=== PATIENT | male | born 1965 | race Caucasian/White ===

== ENCOUNTER 2024-10-27 16:28 | Emergency (ER) | payer MEDICARE, SELFPAY ==
--- OUTSIDE RECORDS SUMMARY | 2022-07-22 03:47 | XMS_ITS | Continuity of Care Document ---
Author Organization [facility] Address [address] [place] [address] Phone Care Team Providers Care Remote Sensing Surveyor Name Role Phone Maverick FORD MD, Timoteo Hoanga ble Advance Directives Directive Yes / No Effective Date File Name No Information Encounters Encounter Description Practice Location Reason(s) For Visit Diagnoses Date Provider Providers Copied on Encounter [facility], [address], [place], [id number], [place] tel:[phone] [facility] No Information Maverick Dinero er. [address] [facility], [address], [place], [place], [id number] , [place]. tel:[phone] Family History Family Member Type Diagnosis Age At Onset No Information Payers Payer name Insurance type Covered republican ID Authoriza tion(s) No Information Social History Type Description Quantity Date Captured Comments Sex Male Smoking Status No Information Chief Complaint And Reason For Visit No Information Reason For Referral Reason For Referral No Information History Of Present Illness Encounter Date Complaint History Of Prese nt Illness No Information Functional Status Date Functional Assessmen t No Information Instructions Date Instruction Additional Infor mation No Information Assessments Type Assessment Date No Information Patient Care Teams Name Effective Dates (start - stop) Status Members No Information
--- OUTSIDE RECORDS SUMMARY | 2022-07-22 03:47 | XMS_ITS | Continuity of Care Document ---
Author Organization [facility] Address [address] [place] [address] Phone Care Team Providers Care Assistant Credit Manager Name Role Phone Maverick FORD MD, Timoteo Hoanga ble Advance Directives Directive Yes / No Effective Date File Name No Information Encounters Encounter Description Practice Location Reason(s) For Visit Diagnoses Date Provider Providers Copied on Encounter [facility], [address] [facility], [place], [id number], [place] tel:[phone] [facility] No Information Maverick Dinero er. [address] [facility], [address], [place], [place], [id number] , [place]. tel:[phone] Family History Family Member Type Diagnosis Age At Onset No Information Payers Payer name Insurance type Covered democrat ID Authoriza tion(s) No Information Social History [...]
--- OUTSIDE RECORDS SUMMARY | 2022-08-07 04:30 | XMS_ITS | Continuity of Care Document ---
Author Organization [facility] Address [address] [place] [address] Phone Care Team Providers Care Corporate Claims Examiner Name Role Phone Edinson Fleming MD Unavailable Unavailable Allergies, Adverse Reactions, Alerts Substance Reaction Status Criticality HYDROCODONE BITARTRATE Active No In formation acetaminophen Active No Information Medications Medication Instructions Dosage Effective Dates (start - stop) Status Comments tramadol 50 mg tablet - Acti ve ibuprofen 800 mg tablet TAKE 1 TABLET BY MOUTH EVERY 8 HOURS FOR 10 DAYS - Active oxycodone 5 mg tablet - Acti ve naproxen 500 mg tablet - Act carlos tizanidine 4 mg tablet - Act carlos gabapentin 100 mg capsule - Active methylprednisolone 4 mg tablets in a dose pack - Active azithromycin 250 mg tablet TAKE 2 TABLET S BY MOUTH FOR 1 DAY THEN TAKE 1 TABLET BY MOUTH DAILY FOR 4 DAYS - Active Procedures Procedure Date OFFICE/OUTPATIENT VISIT EST OFFICE/OUTPATIENT VISIT NEW Advance Directives Directive Yes / No Effective Date File Name No Information Encounters Encounter Description Practice Location Reason(s) For Visit Diagnoses Date Provider Providers Copied on Encounter OFFICE/OUTPA TIENT VISIT EST [facility], [address] [facility] [address], [place], [address], [place] tel:[phone] [facility] [address] [facility] hip (chief complaint) Pain from implanted hardware, initial encounterBulging lumbar discPain in right hip 3 Lonnie Neves. [address] [place], [place], [id number] . tel:[phone] OFFICE/OUTPA TIENT VISIT NEW [facility], [address] [facility], [place], [address], [place] tel:[phone] [facility] [address] [facility] hip (chief complaint) Pain from implanted hardware, initial encounterRight hip pain 3 Lonnie Edinson. [address] [place], [place], [address] . tel:[phone] [facility], [address] [address], [place], [address], [place] tel:[phone] [facility] No Information 3 Lonnie Piersonolas. [address] [place], [place], [address] . tel:[phone] Family History Family Member Type Diagnosis Age At Onset Problem Family history of Cancer, ov aroldo Problem Family history of Cancer, bl adder Payers Payer name Insurance type Covered constitution party ID Authoriza tion(s) Blue Preferred POS/PPO/HMO E2 OT [id number] Social History Type Description Quantity Date Captured Comments Alcohol Use Details Unknown Caffeine Use Details Unknown Tobacco Use Status No Information Smoking Status No Information Sex Male Chief Complaint And Reason For Visit From encounter dated '08/07/2022 09:30'. hip (chief complaint) Reason For Referral Reason For Referral No Information History Of Present Illness Encounter Date Complaint History Of Prese nt Illness lumbar spine hip Comments: Reason for visit: Painful right groin, total hip arthroplastyHe did bring in his bone scan results, as well as CT scan, sed rate and CRP. They are all normal. Eventually, I looked at an MRI of his lumbar spine and he has a slipped disc at L1-2, spondylolisthesis, as well as a large bulging disc. Comments: Selwyn Rajput, right hip and groin pain status post total hip arthroplasty in 2020. Patient is a 56 year old male who had a right ASHLEY in July 2020 by an outside physician. He continues to have pain. He has had pain since surgery, burning pain on the anterolateral aspect of his hip, pain with any motion of his hip especially his groin. He denies any fever or chills but he did have post op wound drainage that eventually resolved, but he does deny any purulence. He has start up pain, pain at rest for at least an hour when going to bed and it wakes him at night several times. He states his had an infectious markers drawn but he does not remember what they were, he also had a bone scan but did not bring it with him. hip Functional Status Date Functional Assessmen t No Information Instructions Date Instruction Additional Infor los I discussed the MRI with him fully. I believe this is likely the cause of his pain. I will set up a corticosteroid injection for him. Of note, he did have an iliopsoas injection which did not seem to help him very much. He will follow up if pain persists. Related to Pain in right hip I discussed this wit h him fully. I would like to evaluate Sed rate and CRP myself as well as a bone scan so I recommended he bring that next visit, as well as updated x-rays he took at his PCP office. It is difficult to say what is causing his pain at this time but I would like to rule out infection and loosening at this time as his x-rays appear normal. The medical record documentation of this Provider's service encounter was entered by Tess Mcfarlane, acting as Engineering Agent for Edinson Fleming M.D. Related to Right hip pain Assessments Type Assessment Date assessment Pain from implanted hardware, in itial encounter assessment Bulging lumbar disc assessment Pain in right hip Patient Care Teams Name Effective Dates (start - stop) Status Members No Information
--- OUTSIDE RECORDS SUMMARY | 2024-09-01 06:30 | XMS_ITS ---
Author Organization [facility] Address [address] [place] [address] [place] [address] Care Team Providers Care Data Solutions Architect Name Role Phone GUS FORD, CHRISSYHunter Primary Care Provider Unavailab Huber Alcala Unavailable [phone] REASON FOR VISIT Post Procedure Follow Up Call Encounters Encounter Location Date Provider Diagnosis [facility] [address] [place] [address] 09/01/2024 Huber Damon PLAN OF TREATMENT No Information
--- OUTSIDE RECORDS SUMMARY | 2024-09-08 04:00 | XMS_ITS ---
Author Organization [facility] Address [address] [facility] [place] [address] Care Team Providers Care Insurance Producer Name Role Phone GUS FORD, JIAN Primary Care Provider Jaun DensonivannaHuber campos Unavailable [phone] ALLERGIES Allergen (clinical drug ingredient) Drug/Non Drug Allergy documented on EMR Reaction Allergy Type Onset Date Status hydrocodone Hydrocodone itching Drug Allergy Act carlos REASON FOR VISIT Follow Up, Right > Left Low Back Pain MEDICATIONS Medication SIG (Take, Route, Fr equency, Duration) Notes Start Date End Date Status Aspirin 81 MG 1 tablet Orally Once a day for 30 day(s) Active Cetirizine HCl 10 MG 1 tablet Orally Onc e a day for 30 day(s) Active Flexeril 10 MG 1 tablet at bedtime as needed Orally Once a day for 30 day(s) Active Tylenol 325 MG 1 tablet as needed O rally every 6 hrs Active buPROPion HCl 75 MG 1 tablet Orally Twice a day Active SOCIAL HISTORY Tobacco Use: Social History Observation Description Date Details (start date - stop date) Former Smoker NA - NA Sex Assigned At : Social History Observation Description Sex Assigned At Unknown Tobacco Use/Smoking Question Answer Notes Are you a former smoker Alcohol Screen (Audit-C) Question Answer Notes Did you have a drink containing alcohol in the p ast year? 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 The patient is a former smoker. He denies alcohol or illicit drug abuse. VITAL SIGNS Blood pressure systolic 136 mm Hg 09/09/19 25 Blood pressure diastolic 90 mm Hg 025 Heart Rate 76 /min 09/08/2024 Respiratory Rate 18 /min 09/08/2024 Height 5 ft 8 in in 09/08/2024 Weight 261 lbs 09/08/2024 BMI 39.68 kg/m2 09/08/2024 Encounters Encounter Location Date Provider Diagnosis [facility] [address] [facility] [place] [address] 09/08/2024 Huber Damon Spondylosis without myelopathy or radiculopathy, lumbar region M47.816 ; Spondylosis without myelopathy or radiculopathy, lumbosacral region M47.817 ; Lumbar radiculopathy M54.16 and Radiculopathy, lumbosacral region M54.17 ASSESSMENTS Encounter Date Diagnosis Assessment Notes Treatment Notes Treatment Clinical Notes Section Notes 09/08/2024 Spondylosis without myelopathy or radiculopathy, lumbar region (ICD-10 - M47.816) Schedule a bilateral L2-4 radiofrequency ablation for a more durable treatment of the patient's facet-generated low back pain originating from the L3-4 and L4-5 facet joints. The risks of this procedure including pain, bleeding, infection, nerve damage, spinal cord injury, paralysis, total spinal anesthesia resulting in cardiopulmonary arrest/, respiratory distress requiring intubation, neuritis after radiofrequency ablation, hyperglycemia, insomnia, hair loss, muscle atrophy, skin depigmentation, weight gain, fluid retention, adrenal suppression, osteoporosis resulting in fractures, avascular necrosis of the hip, cataracts, bleeding gastric ulcer, worsening pain and failure to relieve pain were discussed and the patient is agreeable to proceeding at this time. 09/08/2024 Spondylosis without myelopathy or radiculopathy, lumbosacral region (ICD-10 - M47.817) 09/08/2024 Lumbar radiculopathy (ICD-10 - M54.16) 09/08/2024 Radiculopathy, lumbosacral region (ICD-10 - M54.17) 09/08/2024 Other The above-named patient was evaluated in conjunction with Dr. Damon. I have discussed and reviewed all of the pertinent history, physical examination findings and diagnostic imaging results with him. As a result of our discussion, Dr. Damon has determined the above assessment and directed the treatment plan. This note was dictated using voice recognition software and therefore inadvertent errors may have occurred. This note was dictated by BAILEY Del Castillo. Total Time Spent with Patient and Medical Decision Makin minutes PLAN OF TREATMENT Treatment Notes Assessment Notes Spondylosis without myelopat hy or radiculopathy, lumbar region Schedule a bilateral L2-4 radiofrequency ablation for a more durable treatment of the patient's facet-generated low back pain originating from the L3-4 and L4-5 facet joints. The risks of this procedure including pain, bleeding, infection, nerve damage, spinal cord injury, paralysis, total spinal anesthesia resulting in cardiopulmonary arrest/, respiratory distress requiring intubation, neuritis after radiofrequency ablation, hyperglycemia, insomnia, hair loss, muscle atrophy, skin depigmentation, weight gain, fluid retention, adrenal suppression, osteoporosis resulting in fractures, avascular necrosis of the hip, cataracts, bleeding gastric ulcer, worsening pain and failure to relieve pain were discussed and the patient is agreeable to proceeding at this time. Other The above-named patient was evaluated in conjunction with Dr. Damon. I have discussed and reviewed all of the pertinent history, physical examination findings and diagnostic imaging results with him. As a result of our discussion, Dr. Damon has determined the above assessment and directed the treatment plan. This note was dictated using voice recognition software and therefore inadvertent errors may have occurred. This note was dictated by BAILEY Del Castillo. Total Time Spent with Patient and Medical Decision Makin minutes Next Appt Details Follow Up: bilateral L2-4 RF A, Reason: Progress Notes * Examination Category Sub-Category Detail Notes Category Not es Examination/ Pre-Anesthesia Assessment General: The patient is alert and oriented X 3 in moderate distress secondary to pain HEENT: Normocephalic, atrau matic. PERRL. The oropharynx is clear Neck: There is full range of motion of the cervical spine Heart: Regular rate and rhy thm Chest: Clear to auscultatio n bilaterally Abdomen: Soft and benign with normal bowel sounds throughout Musculoskeletal and Extremities: There i s tenderness to palpation over the bilateral L2-3 through L5-S1 facet joints. Extension and lateral rotation of the lumbar spine reproduces the patient's typical axial low back pain. Deepak's, [place]'s and [place]'s are positive bilaterally. There is tenderness to palpation over the bilateral sacroiliac joints and greater trochanters. There is tenderness to palpation over the bilateral lumbar paraspinal muscles. There is full range of motion of the right hip Neurological: There is positive st raight leg raising on the right. There is 4 out of 5 strength of the right knee extensors, anterior tibialis and EHL. Otherwise, there are no focal strength deficits in the remainder of the right lower extremity and entire left lower extremity. The patient's gait is antalgic on the right Skin: Clean, dry and intac t Psychiatric: Mood and affect are normal History and Physical Notes * HPI (History of Present Illness) Category Sub-Category Detail Notes Category Not es Pain Management Radiographic Imaging An MRI lumbar spine done on 12/09/21 demonstrates a retrolisthesis of L1 on L2, L3 on L4 and L4 on L5. There is DDD and bilateral facet arthropathy at all levels of the lumbar spine. There are Modic type II endplate changes at L5 and S1. At T12-L1 there is a right paracentral disc protrusion. At L1-2 there is a central disc bulge with a right paracentral disc protrusion. At L2-3 there is central disc bulging without significant stenosis. At L3-4 there is a central and left foraminal disc protrusion and in combination with facet and ligament hypertrophy there is right greater than left foraminal stenosis. At L4-5 there is a central disc bulge with a central disc protrusion as well as a bilateral foraminal disc protrusion causing bilateral foraminal stenosis. At L5-S1 there is a right foraminal disc protrusion and in combination with facet hypertrophy this causes moderate right foraminal stenosis. An MRI lumbar spine done on 09/17/23 again demonstrates DDD and bilateral facet arthropathy throughout the lumbar spine. At L3-4 there is moderate right foraminal stenosis. At L4-5 there is moderate right and mild to moderate left foraminal stenosis. At L5-S1 there is moderate bilateral foraminal stenosis Assessment and Follow-up: Follow-up Plan docshlomo mathieu:: Yes MIPS Quality 2020: MIPS Documented:: Compliant
--- OUTSIDE RECORDS SUMMARY | 2024-09-13 09:30 | XMS_ITS ---
Author Organization [facility] Address [address] [place] [address] JAN Lujan [address] Care Team Providers Care Java Flex Developer Name Role Phone GUS FORD, JIAN Primary Care Provider Huber Gil Unavailable [phone] ALLERGIES Allergen (clinical drug ingredient) Drug/Non Drug Allergy documented on EMR Reaction Allergy Type Onset Date Status hydrocodone Hydrocodone itching Drug Allergy Act carlos REASON FOR VISIT Right > Left Low Back Pain MEDICATIONS Medication SIG (Take, Route, Fr equency, Duration) Notes Start Date End Date Status buPROPion HCl 75 MG 1 tablet Orally Twice a day Unknown Tylenol 325 MG 1 tablet as needed O rally every 6 hrs Unknown Flexeril 10 MG 1 tablet at bedtime as needed Orally Once a day for 30 day(s) Unknown Cetirizine HCl 10 MG 1 tablet Orally Onc e a day for 30 day(s) Unknown Aspirin 81 MG 1 tablet Orally Once a day for 30 day(s) Unknown VITAL SIGNS Blood pressure systolic 156 mm Hg 09/14/19 25 Blood pressure diastolic 102 mm Hg 025 Heart Rate 100 /min 09/13/2024 Respiratory Rate 16 /min 09/13/2024 Height 5 ft 8 in in 09/13/2024 Weight 261 lbs 09/13/2024 BMI 39.68 kg/m2 09/13/2024 Oximetry 97 % 09/13/2024 Post Op Vitals: BP 147/95, H R 86, RR 16, Spo2 97%Discharged to home with self, ambulatory without assistance at baseline, and in no acute distress. Encounters Encounter Location Date Provider Diagnosis [facility] [address] [place] [address] JAN MORTON [id number] 09/13/2024 Huber Damon Spondylosis without myelopathy or radiculopathy, lumbar region M47.816 and Spondylosis without myelopathy or radiculopathy, lumbosacral region M47.817 ASSESSMENTS Encounter Date Diagnosis Assessment Notes Treatment Notes Treatment Clinical Notes Section Notes 09/13/2024 Spondylosis without myelopathy or radiculopathy, lumbar region (ICD-10 - M47.816) 09/13/2024 Spondylosis without myelopathy or radiculopathy, lumbosacral region (ICD-10 - M47.817) 09/13/2024 Other The patient voiced understanding of the treatment plan and all questions were addressed. Obtain informed consent: Bilateral Lumbar 2-4 Radiofrequency Ablation under fluoroscopy. Monitor pulse, blood pressure and SaO2 before, after and as needed during procedure. Verify if the patient is currently taking blood thinner. Verify patients is not currently on antibiotics for infection. Patient may drive home. CARE PLAN: Knowledge deficit: Will verbalize understanding of the proposed procedure, including risk of electrical burn, complications and benefits of the procedure? Will the patient exhibit understanding of the discharge instructions? Safety: The potential for injury related to surgery was assessed; Fire risk score determined, test completed if applicable. Risk for injury related to wrong patient, site, procedure. TIME OUT for safety of patient and includes patient name, , procedure site, side, level, allergies, blood thinners, antibiotics, surgical counts, consents correct and signed etc. Risk for infection: Implements aseptic technique, protects from cross-contaminatio n, performs skin preparations. Pain/Discomfort: Patient verbalizes acceptable level of pain relief prior to discharge and the ability to engage in desired activity. I HAVE REVIEWED THE PATIENT'S MEDICATION LIST AND HAVE RECONCILED THE ABOVE MEDICATIONS. PATIENT GOALS AND SAFETY CONCERNS HAVE BEEN ADDRESSED. RN initials JE. PLAN OF TREATMENT Treatment Notes Assessment Notes Other The patient voiced understanding of the treatment plan and all questions were addressed. Obtain informed consent: Bilateral Lumbar 2-4 Radiofrequency Ablation under fluoroscopy. Monitor pulse, blood pressure and SaO2 before, after and as needed during procedure. Verify if the patient is currently taking blood thinner. Verify patients is not currently on antibiotics for infection. Patient may drive home. CARE PLAN: Knowledge deficit: Will verbalize understanding of the proposed procedure, including risk of electrical burn, complications and benefits of the procedure? Will the patient exhibit understanding of the discharge instructions? Safety: The potential for injury related to surgery was assessed; Fire risk score determined, test completed if applicable. Risk for injury related to wrong patient, site, procedure. TIME OUT for safety of patient and includes patient name, , procedure site, side, level, allergies, blood thinners, antibiotics, surgical counts, consents correct and signed etc. Risk for infection: Implements aseptic technique, protects from cross-contamination, performs skin preparations. Pain/Discomfort: Patient verbalizes acceptable level of pain relief prior to discharge and the ability to engage in desired activity. I HAVE REVIEWED THE PATIENT'S MEDICATION LIST AND HAVE RECONCILED THE ABOVE MEDICATIONS. PATIENT GOALS AND SAFETY CONCERNS HAVE BEEN ADDRESSED. RN initials CHEMO. Next Appt Details Follow Up: FU 10/04, Reason: Procedure Notes * Category Sub-Category Detail Notes Radiofrequency Ablation Procedure: L2-4 Med ial Branch Nerve Radiofrequency Ablation Location: Bilateral Anesthesia: Local without IV sed ation Operative Technique: After the risks, be nefits, alternative treatment options and potential complications related to the procedure were discussed, informed consent was obtained. The specific risks of this procedure including pain, bleeding, [...] is agreeable to proceeding at this time. The patient was placed in the prone position on the fluoroscopy table. Standard ASA monitors were applied. The back was prepped and draped in the usual sterile fashion with chlorhexidine 2%/IPA 70%. The bilateral L3 pedicles were identified with x-ray and the c-arm was obliqued 45 degrees to the selected side superimposing the L3 pedicle and L3 vertebral body. The skin and subcutaneous structures above it were anesthetized with 3 mL of 1% Preservative-Free lidocaine through a 25 g 1.5-inch needle. A 20-gauge coude 10 cm radiofrequency needle with a 10 mm active tip was inserted in a gun barrel fashion to the junction of the superior articular process and transverse process of L3 until periosteum was contacted. The bilateral L2 medial branch nerves were stimulated with negative motor stimulation at 2 Hz up to 3.0 V. A solution of 10 mg of Preservative-Free Dexamethasone (10 mg/mL), plus?5 mL of 1% Preservative-Free lidocaine was mixed. After negative aspiration for blood, air or CSF, 1 mL of this solution was injected. The bilateral L2 medial branch nerves were lesioned at 80 degrees Celsius for 90 seconds. The exact same procedure was repeated at the bilateral L3 medial branch nerves (at the junction of the superior articular process and transverse process of L4) and the bilateral L4 medial branch nerves (at the junction of the superior articular process and transverse process of L5) with no motor stimulation into the lower extremity at 2 Hz up to 3.0 V. The needles were then removed, the skin was cleaned and band-aids were placed over the puncture sites. The patient tolerated the procedure well, was able to ambulate without difficulty and was monitored for 20 minutes. The patient remained hemodynamically and neurologically stable. No complications were observed. Postoperative instructions were reviewed with the patient. The patient was discharged home in good condition with a cab driver. X-ray time:?51 secondsInstrumentation for this procedure came from load number(s): 174 [facility] First Critical Point Olesya ent identified by verbal and ID band. Surgical site marked. Assessement of allergies, airway and aspiration risk. Assessed if patient is on anticoagulant. Operataive Consent signed. Patient has discussed procedure with physician SHERYL CEDENO 09/13/2024 2:03:23 PM > Second Critical Point TIME OUT: Confirm patient identity, procedure and surgical incision site. Patient in proper position and safety straps placed appropriately. ASA score: _2_ Fire Risk Score:_2_ . Alcohol based prep solution had significant time for fumes to dissipate. Confirm surgical team otr truck driver and roles. Anticipated critical events. Essential imaging displayed as appropriate. Fluoroscopy precautions taken if applicable. Equipment and supplies in room. Verify patient is not if applicable SHERYL CEDENO 09/13/2024 2:03:23 PM > Third Critical Point [facility]: Complete count of surgical instruments and accessories. Identify delgado patient concerns for recovery and management of the patient. Patient remains free from injury related to surgery. The patient tolerated the procedure well and there were no complications. The patient was taken to the recovery area. The patient remained in stable condition with no apparent complications. Vital signs stable. Injection/procedure/surgical site clean, dry and intact. Post procedure discharge instructions were give to the patient and a follow up appointment was confirmed. The patient was discharged with information on how to reach the clinic at anytime for questions or concerns. Patient discharged ambulatory. Patient denies complaints or questions SHERYL CEDENO 09/13/2024 2:59:23 PM > Progress Notes * Examination Category Sub-Category Detail [...] patient's typical axial low back pain. Deepak's, [place]'s and [place]'s are positive bilaterally. There is [...] foraminal stenosis Assessment and Follow-up: Follow-up Plan documen mathieu:: Yes MIPS Quality 2020: MIPS Documented:: Compliant
--- OUTSIDE RECORDS SUMMARY | 2024-09-14 05:12 | XMS_ITS ---
Author Organization [facility] Address [address] [facility] [place] [address] Care Team Providers Care Cableman Name Role Phone GUS FORD, [facility] Primary Care Provider Unavailab Huber [place] Unavailable [phone] REASON FOR VISIT Post Op Call Encounters Encounter Location Date Provider Diagnosis [facility] [address] [facility] [place] [address] 09/14/2024 Huber Damon PLAN OF TREATMENT No Information
--- OUTSIDE RECORDS SUMMARY | 2024-10-04 08:15 | XMS_ITS ---
Author Organization [facility] Address [address] [facility] [place] [address] Care Team Providers Care Marketing Development Representative Name Role Phone GUS FORD, [facility] Primary Care Provider Unavailab Huber [place] Unavailable [phone] REASON FOR VISIT FOLLOW UP Encounters Encounter Location Date Provider Diagnosis [facility] [address] [facility] [place] [address] 10/04/2024 Huber Damon PLAN OF TREATMENT No Information
--- OUTSIDE RECORDS SUMMARY | 2024-10-27 16:30 | XMS_ITS | Continuity of Care Document ---
Author Name Paula Xiong Address [address] [facility] [address] [place] [address] Organization Unknown Address [address] [place] [address] [address] [place] [address] Medications No known medications Problems * Inguinal Hernia on: 2023-05-28
--- OUTSIDE RECORDS SUMMARY | 2024-10-27 16:30 | XMS_ITS | Encounter Summary ---
Author Organization [facility] Address [address] [facility] [place] [address] Phone Care Team Providers Care Public Address System Installer Name Role Phone James Strickland MD Primary Care Provider [phone] Geoffrey Sheehan MD Unavailable Fei Merritt MD Unavailable Reason for Referral * Radiology Services (Routine) - Closed Specialty Diagnoses / Procedures Referred By Contac t Referred To Contact Radiology Diagnoses Pre-op testing Procedures EKG 12 LEAD Kelton Mon MD [address] [place] [address] Phone: tel: fax: Referral ID Status Reason Start Date Expiration Date Visits Re quested Visits Authorized [id number] Closed 03/21/2020 1 1 [facility] Encounter Details Date Type Department Care Team (Late st Contact Info) Description 03/21/2020 [facility]cribe [facility] [address] [place] [id number] Kelton Mon MD [address] [place] [address] Pre-op testing (Primary Dx) Social History Tobacco Use Types Packs/Day Years Used Date Smoking Tobacco: Former Cigarettes 1 15 0 03/20/1980 - 1994 Smokeless Tobacco: Never Alcohol Use Standard Drinks/Week Comments Yes 0 (1 standard drink = 0.6 oz pur e alcohol) 3 beers a week/socially PHQ-2 Answer Date Recorded PHQ-2 Score 0 10/31/2018 Sexually Active Control Partners Comments Not Currently Female Sex and Gender Information Value Date Recorded Sex Assigned at Not on file Legal Sex Male 11:15 PM CDT Gender Identity Not on file Sexual Orientation Not on file COVID-19 Exposure Response Date Recorded In the last month, have you been in contact with someone who was confirmed or suspected to have Coronavirus / COVID-19? No / Unsure 03/23/2020 7:21 AM EMBR[facility]ER [facility] documented as of this encounter Plan of Treatment Not on file documented as of this encounter Results * EKG 12 LEAD (03/23/2020 7:55 AM [facility]BR[facility] HAND) Ventricular Rate BPM EXTERNAL EKG Atrial Rate BPM EXTERNAL EKG P-R Interval 156 ms EXTERNAL EKG QRS Duration 110 ms EXTERNAL EKG Q-T Duration 386 ms EXTERNAL EKG QTC CALCULATION 405 ms EXTERNAL EKG P [place] 34 degrees EXTERNAL EKG R [place] 19 degrees EXTERNAL EKG T [place] 23 degrees EXTERNAL EKG 03/23/2020 7:55 AM EMBR[facility]ER HAND Impressions EXTERNAL EKG - 03/23/2020 10:52 AM EMBR[facility] Sinus rhythm iRBBB Comparison Summary: No serial comparison made Summary: Normal ECG Confirmed by Lee Alejandro [id number] on 03/23/2020 10:52:49 AM Narrative Procedure Note Fadumo Howard MD - 03/23/2020 IMPRESSION: Sinus rhythm iRBBB Comparison Summary: No serial comparison made Summary: Normal ECG Confirmed by Lee Alejandro [id number] on 03/23/2020 10:52:49 AM Kelton Mon MD IMG ECG ORDERABLES Final Resu lt EXTERNAL EKG * HEMOGLOBIN & HEMATOCRIT (H&H) (03/23/2020 7:43 AM EMBROIDERER HAND) HEMOGLOBIN (HGB) 14.4 13.0 - 16.5 g/dL 03/23/2020 9:13 AM EMBROID[facility]ER HAND [facility] HEMATOCRIT (HCT) 45.2 38.0 - 50.0 % 03/23/2020 9:13 AM [facility]BROID[facility]ER HAND [facility] Blood Venipuncture / Unknown 03/23/2020 7:43 AM EMBROIDERER HAND 03/23/2020 8:58 AM EMBROIDERER HAND us Kelton Mon MD HEMATOLOGY ORDERABLES Final R esult [facility] [address] [facility] [place] [address] documented in this encounter Visit Diagnoses Diagnosis Pre-op testing- Primary Preoperative examination, unspecified Pre-op testing Preoperative examination, unspecified documented in this encounter Additional Health Concerns Infection Onset Date Last Indicated Resolved Time COVID - 19 Confirmed 03/23/2020 03/23/2020 021 12:18 AM EMBROIDERER HAND Assessment Noted Time PHQ-9 Depression Total Score: 0 11/03/19 18 9:00 AM CDT documented as of this encounter Care Teams Public Address System Installer Relationship Specialty Start Date End Date James Strickland MD [address] [facility] [address] [place] [address] PCP - General Family Medicine 01/13/15 Geoffrey Sheehan MD [address] [facility] [address] [place] [address] Consulting Physician Colon and Rectal Surgery 03/04/22 Fei Merritt MD [address] [facility] [address] [place] [id number] Consulting Physician Urological Surgery 07/09/22 documented as of this encounter
--- OUTSIDE RECORDS SUMMARY | 2024-10-27 16:30 | XMS_ITS | Patient Health Record ---
Author Organization [facility] Address [address] [facility] [place] [address] Care Team Providers Care Patient Accounts Specialist Name Role Phone GUS FORD, JIAN Primary Care Provider Huber Gil Unavailable [phone] ALLERGIES Allergen (clinical drug ingredient) Drug/Non Drug Allergy documented on EMR Reaction Allergy Type Onset Date Status hydrocodone Hydrocodone itching Drug Allergy Act carlos REASON FOR REFERRAL No Information MEDICATIONS Medication SIG (Take, Route, Fr equency, [...] Once a day for 30 day(s) Unknown SOCIAL HISTORY Tobacco Use: Social History Observation [...] Section Notes: 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 The patient is a former smoker. He denies alcohol or illicit drug abuse. 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 The patient is a former smoker. He denies alcohol or illicit drug abuse. 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 The patient is a former smoker. He denies alcohol or illicit drug abuse. 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 The patient is a former smoker. He denies alcohol or illicit drug abuse. 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 The patient is a former smoker. He denies alcohol or illicit drug abuse. 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 The patient is a former smoker. He denies alcohol or illicit drug abuse. 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 The patient is a former smoker. He denies alcohol or illicit drug abuse. 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 The patient is a former smoker. He denies alcohol or illicit drug abuse. PROBLEMS Problem Type ICD Code Onset Dates Problem Status W/U Status Risk SNOMED Code Notes Problem Spondylosis without myelopathy or radiculopathy, lumbar region (M47.816) Active confirmed Lumbosacral spondylosis without myelopathy (20995705) Problem Spondylosis without myelopathy or radiculopathy, lumbosacral region (M47.817) Active confirmed Lumbosacral spondylosis without myelopathy (disorder) (61786475) Problem Intervertebral disc disorders with radiculopathy, lumbar region (M51.16) Active confirmed Radiculopathy d ue to lumbar intervertebral disc disorder (011038341408606) Problem Radiculopathy, lumbar region (M54.16) Active confirmed Lumbar radiculopathy (536529158) Problem Radiculopathy, lumbosacral region (M54.17) Active confirmed Lumbosacral radiculopathy (9023812) Problem Osseous stenosis of neural canal of lumbar region (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) Active confirmed Spinal stenosis of lumbar region (97635782) Problem 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) Active confirmed Spinal stenosis of lumbar region (65738302) Problem 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 Respiratory Rate 16 /min 09/13/2024 Post Op Vitals: BP 147/95, HR 86, RR 16, Spo2 97% Discharged to home with self, ambulatory without assistance at baseline, and in no acute distress. Oximetry 97 % 09/13/2024 Post Op Vitals: BP 147/95, HR 86, RR 16, Spo2 97% Discharged to home with self, ambulatory without assistance at baseline, and in no acute distress. Blood pressure diastolic 102 mm Hg 09/13/2024 Post Op Vitals: BP 147/95, HR 86, RR 16, Spo2 97% Discharged to home with self, ambulatory without assistance at baseline, and in no acute distress. Height 5 ft 8 in in 09/13/2024 Post Op Vitals: BP 147/95, HR 86, RR 16, Spo2 97% Discharged to home with self, ambulatory without assistance at baseline, and in no acute distress. Blood pressure systolic 156 mm Hg 09/13/2024 Post Op Vitals: BP 147/95, HR 86, RR 16, Spo2 97% Discharged to home with self, ambulatory without assistance at baseline, and in no acute distress. Weight 261 lbs 09/13/2024 Post Op Vitals: BP 147/95, HR 86, RR 16, Spo2 97% Discharged to home with self, ambulatory without assistance at baseline, and in no acute distress. BMI 39.68 kg/m2 09/13/2024 Post Op Vitals: BP 147/95, HR 86, RR 16, Spo2 97% Discharged to home with self, ambulatory without assistance at baseline, and in no acute distress. Encounters Encounter Location Date Provider Diagnosis [facility] [address] [place] [address] 07/14/2024 Huber Damon Lumbar radiculopathy M54.16 ; Radiculopathy, lumbosacral region M54.17 ; Intervertebral disc disorders with radiculopathy, lumbar region M51.16 ; Intervertebral disc stenosis of neural canal of lumbar region M99.53 ; Other intervertebral disc degeneration, lumbar region with discogenic back pain and lower extremity pain M51.362 ; Osseous stenosis of neural canal of lumbar region M99.33 ; Spondylosis without myelopathy or radiculopathy, lumbar region M47.816 ; Spondylosis without myelopathy or radiculopathy, lumbosacral region M47.817 and intermediate project manager (current) use of aspirin Z79.82 [facility] [address] [place], [place] [address] [address] 07/26/2024 Huber Stynowick Radiculopathy, lumba r region M54.16 ; Radiculopathy, lumbosacral region M54.17 and Osseous stenosis of neural canal of lumbar region M99.33 [facility] [address] [place] [address] 07/27/2024 Huber Stynowick [facility] [address] [place] [address] [place] [address] 08/09/2024 Huber Stynowick Radiculopathy, lumba r region M54.16 ; Spondylosis without myelopathy or radiculopathy, lumbar region M47.816 ; Radiculopathy, lumbosacral region M54.17 ; Osseous stenosis of neural canal of lumbar region M99.33 and Spondylosis without myelopathy or radiculopathy, lumbosacral region M47.817 [facility] [address] [place] [address] 08/16/2024 Huber Stynowick Spondylosis without myelopathy or radiculopathy, lumbar region M47.816 and Spondylosis without myelopathy or radiculopathy, lumbosacral region M47.817 [facility] [address] [place] [address] [place] [address] 08/17/2024 Huber Stynowick [facility] [address] [place] [address] [place] [address] 08/25/2024 Huber Stynowick Spondylosis without myelopathy or radiculopathy, lumbar region M47.816 ; Spondylosis without myelopathy or radiculopathy, lumbosacral region M47.817 ; Lumbar radiculopathy M54.16 and Radiculopathy, lumbosacral region M54.17 [facility] [address] [place] [address] 08/31/2024 Huber Stynowick Spondylosis without myelopathy or radiculopathy, lumbar region M47.816 and Spondylosis without myelopathy or radiculopathy, lumbosacral region M47.817 [facility] [address] [place] [address] 09/01/2024 Huber Stynowick [facility] [address] [place] [address] [place] [address] 09/08/2024 Huber Stynowick Spondylosis without myelopathy or radiculopathy, lumbar region M47.816 ; Spondylosis without myelopathy or radiculopathy, lumbosacral region M47.817 ; Lumbar radiculopathy M54.16 and Radiculopathy, lumbosacral region M54.17 [facility] [address] [place] [address] 09/13/2024 Huber Stynowick Spondylosis without myelopathy or radiculopathy, lumbar region M47.816 and Spondylosis without myelopathy or radiculopathy, lumbosacral region M47.817 [facility] [address] [place] [address] [place] [address] 09/14/2024 Huber Stynowick [facility] [address] [place] [address] 10/04/2024 Huber Stynowick ASSESSMENTS Encounter Date Diagnosis Assessment Notes Treatment Notes Treatment Clinical Notes Section Notes 07/14/2024 Radiculopathy, lumbosacral region (ICD-10 - M54.17) I made the patient aware of his strength deficit in the right lower extremity. I emphasized that he could potentially be at risk for a permanent and progressive neurologic deficit without surgical decompression and he expressed an understanding of the above. The patient would like to try injection therapy prior to visiting with a neurosurgeon. He is willing to accept the above risks. 07/14/2024 Lumbar radiculopathy (ICD-10 - M54.16) Schedule a right L3-4 + L4-5 transforaminal epidural steroid injection. The risks of this procedure including pain, bleeding, infection, spinal headache, persistent spinal fluid leak, epidural hematoma, nerve damage, spinal cord injury, paralysis, total spinal anesthesia resulting in cardiopulmonary arrest/, respiratory distress requiring intubation, insomnia, hyperglycemia, hair loss, muscle atrophy, skin depigmentation, weight gain, fluid retention, adrenal suppression, immunosuppression, osteoporosis resulting in fractures, avascular necrosis of the hip, cataracts, bleeding gastric ulcer, worsening pain and failure to relieve pain were discussed and the patient is agreeable to proceeding at this time. 07/26/2024 Radiculopathy, lumbar region (ICD-10 - M54.16) 07/26/2024 Radiculopathy, lumbosacral region (ICD-10 - M54.17) 08/09/2024 Spondylosis without myelopathy or radiculopathy, lumbar region (ICD-10 - M47.816) schedule a bilateral L2-4 medial branch nerve block as a diagnostic and potentially therapeutic endeavor to isolate the source of the patient's facet-generated low back pain originating from the L3-4 and L4-5 facet joints and to ultimately perform radiofrequency ablation for more durable pain relief. The risks of this procedure including pain, [...] is agreeable to proceeding at this time. 08/16/2024 Spondylosis without myelopathy or radiculopathy, lumbar region (ICD-10 - M47.816) 08/16/2024 Spondylosis without myelopathy or radiculopathy, lumbosacral region (ICD-10 - M47.817) 08/25/2024 Spondylosis without myelopathy or radiculopathy, lumbar region (ICD-10 - M47.816) schedule a bilateral L2-4 medial branch nerve block as a diagnostic and potentially therapeutic endeavor to isolate the source of the patient's facet-generated low back pain originating from the L3-4 and L4-5 facet joints and to ultimately perform radiofrequency ablation for more durable pain relief. The risks of this procedure including pain, [...] is agreeable to proceeding at this time. 08/25/2024 Spondylosis without myelopathy or radiculopathy, lumbosacral region (ICD-10 - M47.817) 08/09/2024 Radiculopathy, lumbar region (ICD-10 - M54.16) 08/31/2024 Spondylosis without myelopathy or radiculopathy, lumbar region (ICD-10 - M47.816) 08/31/2024 Spondylosis without myelopathy or radiculopathy, lumbosacral region (ICD-10 - M47.817) 09/08/2024 Spondylosis without myelopathy or radiculopathy, lumbar [...] radiculopathy, lumbosacral region (ICD-10 - M47.817) 09/13/2024 Spondylosis without myelopathy or radiculopathy, lumbar region (ICD-10 - M47.816) 09/13/2024 Spondylosis without myelopathy or radiculopathy, lumbosacral region (ICD-10 - M47.817) 09/08/2024 Lumbar radiculopathy (ICD-10 - M54.16) 08/09/2024 Radiculopathy, lumbosacral region (ICD-10 - M54.17) 07/14/2024 Intervertebral disc disorders with radiculopathy, lumbar region (ICD-10 - M51.16) 08/25/2024 Lumbar radiculopathy (ICD-10 - M54.16) 07/26/2024 Osseous stenosis of neural canal of lumbar region (ICD-10 - M99.33) 08/25/2024 Radiculopathy, lumbosacral region (ICD-10 - M54.17) 07/14/2024 Intervertebral disc stenosis of neural canal of lumbar region (ICD-10 - M99.53) 08/09/2024 Osseous stenosis of neural canal of lumbar region (ICD-10 - M99.33) 09/08/2024 Radiculopathy, lumbosacral region (ICD-10 - M54.17) 07/14/2024 Other intervertebral disc degeneration, lumbar region with discogenic back pain and lower extremity pain (ICD-10 - M51.362) 08/09/2024 Spondylosis without myelopathy or radiculopathy, lumbosacral region (ICD-10 - M47.817) 07/14/2024 Osseous stenosis of neural canal of lumbar region (ICD-10 - M99.33) 07/14/2024 Spondylosis without myelopathy or radiculopathy, lumbar region (ICD-10 - M47.816) If the patient's axial low back pain persists after the above, schedule a bilateral L2-4 medial branch nerve block as a diagnostic and potentially therapeutic endeavor to isolate the source of the patient's facet-generated low back pain originating from the L3-4 and L4-5 facet joints and to ultimately perform radiofrequency ablation for more durable pain relief. The risks of this procedure including pain, [...] is agreeable to proceeding at this time. 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 07/14/2024 Other The above note was dictated by Dr. Damon using voice recognition software and therefore inadvertent errors may have occurred. As a result, this note may not represent a completely accurate interpretation of the intended dictation provided. 07/26/2024 Other The patient voiced understanding of the treatment plan and all questions were addressed. Obtain informed consent: Right Lumbar 3-4 + Right Lumbar 4-5 Transforaminal Epidural Steroid Injection under fluoroscopy. Monitor pulse, blood pressure and [...] GOALS AND SAFETY CONCERNS HAVE BEEN ADDRESSED. CHELSEY initials _DAFNE. 08/09/2024 Other The above-named patient was evaluated in [...] with Patient and Medical Decision Makin minutes 08/16/2024 Other The patient voiced understanding of the treatment plan and all questions were addressed. Obtain informed consent: Bilateral Lumbar 2-4 Medial Branch Nerve Block under fluoroscopy. Monitor pulse, blood pressure and [...] SAFETY CONCERNS HAVE BEEN ADDRESSED. RN initials JW. 08/25/2024 Other The above-named patient was evaluated in [...] This note was dictated by BAILEY Del Castillo Total time spent with patient and medical decision making 33 minutes 08/31/2024 Other The patient voiced understanding of the treatment plan and all questions were addressed. Obtain informed consent: Bilateral Lumbar 2-4 Medial Branch Nerve Block under fluoroscopy. Monitor pulse, blood pressure and [...] GOALS AND SAFETY CONCERNS HAVE BEEN ADDRESSED. CHELSEY initials JW. 09/08/2024 Other The above-named patient was evaluated [...] with Patient and Medical Decision Makin minutes 09/13/2024 Other The patient voiced understanding of [...] ADDRESSED. RN initials JE. PLAN OF TREATMENT No Information Insurance Providers Payer Name Payer Address Payer Phone Subscriber Number Group Number Insured Name Patient Relationship to Insured Coverage Start Date Coverage End Date [facility] [address] [address] [place] [address] [id number] ANDREI KIDD Self - patient is the insured 5 [place] Medicaid [address] [place] [address] [id number] ANDREI KIDD Self - patient is the insured MEDICAL (GENERAL) HISTORY Medical History History ICD Code Diverticulosis Surgical History Surgery Date(Month/Year) Hernia repair
--- OUTSIDE RECORDS SUMMARY | 2024-10-27 16:30 | XMS_ITS | Clinical Summary ---
Author Organization [facility] Address [address] [place] [address] Care Team Providers Care Fitting Room Operator Name Role Phone Giovani Lee MD Unavailable [phone] Source Comments [facility],non-owned Affiliates and Associated Physician Practices is amultiple site organization consisting of ambulatory clinics and hospital sitesin [place], [place], [place] and [place]. This disclosure is being madepursuant to the Care Everywhere program and may not contain all information available regarding this patient. Last updated 17.[facility] Allergies No known active allergies Medications * Be aware that medications may not be up to date on this document. Alwaysverify current medications with the patient. naproxen (NAPROSYN) 500 MG tablet 06/20/2015 Active naproxen sodium (ALEVE) 220 MG tablet Active Social History Tobacco Use Types Packs/Day Years Used Date Smoking Tobacco: Never Assessed Sex and Gender Information Value Date Recorded Sex Assigned at Not on file Legal Sex Male 1:20 PM CDT Gender Identity Not on file Sexual Orientation Not on file Plan of Treatment Health Maintenance Due Date Last Done Comments COLOGUARD (AGES 45-75) - COL ON CA SCREENING 1964 COLON MONITORING 1964 COLONOSCOPY - COLON CA SCREENING 1964 CT COLONOGRAPHY - COLON CA SCREENING 1964 Colorectal Cancer Screening 1964 FIT - COLON CA SCREENING 1964 FLEX SIG - COLON CA SCREENING 1964 LIPID TESTING 1964 HIV SCREENING 11/14/1979 HEPATITIS C SCREENING 11/09/1982 DTAP/TDAP/TD VACCINES (1 - Tdap) 11/14/1983 HEPATITIS B VACCINE (1 of 3 - 19+ 3-dose series) 11/14/1983 PNEUMOCOCCAL VACCINE 50+ (1 of 1 - PCV) 2014 ZOSTER VACCINE (1 of 2) 2014 DEPRESSION SCREENING 02/24/2024 COVID-19 VACCINE (1 - 2023-2 5 season) 2024 INFLUENZA VACCINE (#1) 2024 HIB VACCINE Aged Out No longer eligi ble based on patient's age to complete this topic HPV VACCINE Aged Out No longer eligi ble based on patient's age to complete this topic MENINGOCOCCAL (Group B) VACC INE SHARED DECISION-MAKING Aged Out No longer eligibl e based on patient's age to complete this topic MENINGOCOCCAL GROUPS A/C/Y/W VACCINE Aged Out No longer eligible b ased on patient's age to complete this topic Insurance ANTH Care Teams Fitting Room Operator Relationship Specialty Start Date End Date Giovani Lee MD Orthopedic Surgery 06/26/15
--- OUTSIDE RECORDS SUMMARY | 2024-10-27 16:30 | XMS_ITS | Clinical Summary ---
Author Organization [facility] Address [address] [place] [address] Care Team Providers Care Flange Machine Operator Name Role Phone Juany Dalton Unavailable [phone] Amarilis Franklin MD Primary Care Provi petey Eugene Velazquez MD Unavailable [phone] Allergies Active Allergy Reactions Criticality Noted Date Comments Hydrocodone-Acetaminophen Anxiety Low 03/26/2020 Medications famotidine (PEPCID) 20 mg tablet Take 1 tablet (20 mg total) by mouth 2 (two) times a day as needed 1 Active multivitamin tablet Take 1 tablet by mouth daily Active gabapentin (NEURONTIN) 100 mg capsuleIndications :Lumbar radiculopathy Take 1 capsule (100 mg total) by mouth 3 (three) times a day 90 capsule 1 2 Active cyclobenzaprine (FLEXERIL) 10 mg tablet Take 1 tablet (10 mg total) by mouth 3 (three) times a day as needed for muscle spasms Active atorvastatin (LIPITOR) 20 mg tablet Take 1 tablet (20 mg total) by mouth daily Active metFORMIN (GLUCOPHAGE) 850 mg tablet Take 1 tablet (850 mg total) by mouth 2 (two) times a day with meals Active buPROPion (WELLBUTRIN) 100 mg tablet Take 1 tablet (100 mg total) by mouth 2 (two) times a day Active aspirin 81 mg chewable tablet Take 1 tablet (81 mg total) by mouth daily 30 tablet 4 Active Active Problems Problem Noted Date Diagnosed Date Musculoskeletal chest pain 11/30/2023 Unstable angina 11/29/2023 Hydrocele, left 01/12/2023 Trochanteric bursitis of right hip 01/23/2022 DDD (degenerative disc disease), lumbar 12/12/19 Lumbar radiculopathy 12/05/2021 Acute right-sided low back pain without sciatica 12/05/2021 Insomnia secondary to chronic pain 12/05/2021 Primary osteoarthritis of right hip 06/27/2020 Overview (06/27/2020): Added automatically from request for surgery [id number] Knee pain 07/11/2014 Overview (05/31/2016): Knee pain Acute sinusitis 03/02/2014 Overview (05/31/2016): Acute sinusitis Encounters Date Type Department Care Team Description 08/15/2024 9:14 AM CDT - 08/15/2024 11:59 PM CDT Hospital Encounter [facility] [address] [place] [id number] Pain in right toe(s) Discharge Disposition: Discharge to home or self care from Last 3 Months Immunizations Immunization Administration Dates Next Due Influenza, Trivalent, Preservative Free, Intramu scular 11/30/2023 Surgical History Surgery Date Site/Laterality Comments HERNIA REPAIR 2 hernia KNEE ARTHROSCOPY ROTATOR CUFF REPAIR JOINT REPLACEMENT Left Partial knee replacement Medical History Medical History Date Comments Hx Other Medical cysts removed o n right wrist 1994.; Comments: CANDICE 07/11/2014 - Hx Other Medical Right knee A&A 07-12-2014.; Comments: CANDICE 07/24/2014 - Asthma Osteoarthritis GERD (gastroesophageal reflux disease) Chronic bronchitis (HCC) Lung disease Family History Medical History Relation Name Comments Other Mother from o varian cancer.; Arthritis Other Cancer Other Heart disease Other Kidney disease Other Relation Name Status Comments Mother Other Social History Tobacco Use Types Packs/Day Years Used Date Smoking Tobacco: Former Smokeless Tobacco: Never Tobacco Cessation:Counseling Given: Not Answered AUDIT-C Answer Date Recorded Q1: How often do you have a drink containing alc ohol? Monthly or less 02/13/2023 Q2: How many drinks containi ng alcohol do you have on a typical day when you are drinking? 1 or 2 02/13/2023 Q3: How often do you have si x or more drinks on one occasion? Never 02/13/2023 PHQ-2 Answer Date Recorded PHQ-2 Total Score (If total score is 3 or more points, staff should administer the PHQ-9) 0 12/05/2021 Personal Safety Answer Date Recorded Have you ever been in or are you currently in a harmful physical or emotional relationship or is someone making you feel afraid or unsafe? 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 Gender Identity Not on file Sexual Orientation Not on file Obstetrics History Last Filed Vital Signs Vital Sign Reading Time Taken Comments Blood Pressure 126/90 11/30/2023 3:02 PM CDT Pulse 78 11/30/2023 4:00 PM CDT Temperature 36.2 C (97.2 F) 11/30/2023 3:02 PM CDT Respiratory Rate 20 11/30/2023 3:02 PM CDT Oxygen Saturation 97% 11/30/2023 3:02 PM CDT Inhaled Oxygen Concentration - - Weight 117.9 kg (260 lb) 11/29/2023 11:01 AM CDT Height 172.7 cm (5' 8) 11/29/2023 11:01 AM CDT Body Mass Index 39.53 11/29/2023 11:01 AM CDT Plan of Treatment Health Maintenance Due Date Last Done Comments Colon Cancer Screening-Colonoscopy 1965 Hepatitis C Screening 1964 Prostate Cancer Screening-PSA 1964 Hepatitis B Screening 1982 Regular Well Visit/Exam 18-64 1982 Zoster Vaccine (1 of 2) 2014 Depression Screening 12/05/2022 12/05/2021, 12/05/2021 Influenza Vaccine (#1) 2024 , 11/12/2021, 11/20/2015 DTaP/Tdap/Td Vaccine (2 - Td or Tdap) 06/07/2033 06/08/2023, 02/23/2011 Pneumococcal vaccine <65 Aged Out 11/20/2015 No longer eligible based on patient's age to complete this topic Medical Devices Implanted Type Area Coating Machine Helper Device Identifier Shelf Expiration Date Model / Serial / Lot [employer] [id number] Finger 60mm Sector Hip Shell Acetabular Gription Sterile Latex Free - [id number] Implanted:Qty: 1 on 08/01/2020 by Jayesh Long MD at [facility] Right: Hip [employer] 04/22/2030 [id number] / / [id number] [employer] [id number] Finger 60mm 36mm Hip Neutral Liner Acetabular Altrx Sterile Latex Free - [id number] Implanted:Qty: 1 on 08/01/2020 by Jayesh Long MD at [facility] Right: Hip [employer] 03/25/2024 [id number] / / [id number] [employer] [id number] Finger 6.5mm 35mm Acetabular Cancellous Screw Bone Sterile - [id number] Implanted:Qty: 1 on 08/01/2020 by Jayesh Long MD at [facility] Right: Hip [employer] 01/22/2029 [id number] / / [id number] [employer] [id number] Actis [id number] Mm Collar Hip 6 High Offset Stem Femoral - [id number] Implanted:Qty: 1 on 08/01/2020 by Jayesh Long MD at [facility] Right: Hip [employer] 04/22/2030 [id number] / / [id number] [employer] [id number] Articul/Brian 36mm Cementless Hip +8.5mm 12/14 Taper Head Femoral Latex Free - [id number] Implanted:Qty: 1 on 08/01/2020 by Jayesh Long MD at [facility] Right: Hip [employer] 05/23/2025 [id number] / / [id number] Procedures Procedure Name Priority Date/Time Associated Diagnosis Comments XR TOE RIGHT 2 OR MORE VIEWS Schedule Routine, Read Routine (OP Routine) 08/15/2024 9:29 AM CDT Pain in right toe(s) from Last 3 Months Results * XR Toe Right 2 or More Views (08/15/2024 9:29 AM CDT) Anatomical Region Laterality Modality Lower Extremities, Foot, Toes Right Co mputed Radiography 08/19/2024 11:5 9 PM CDT Narrative 08/20/2024 12:00 AM CDT EXAM DESCRIPTION: XR TOE RIGHT 2 OR MORE VIEWS REASON FOR STUDY: pain Tripped over dog/steps x 4 weeks ago. Complaints of constant R big toe pain. Pt states he did have bruising to R big toe, but that has gotten better. Still some swelling. No prior injuries/surgery to R foot. No known conditions. TECHNIQUE: 4 radiographic view(s) of the right foot . COMPARISON: None FINDINGS: Transverse fracture is seen of the mid aspect of the distal phalanx of the great toe. This may be mildly impacted. Other bones appear to be intact. Some degenerative changes are noted to a mild degree. Soft tissues appear unremarkable. IMPRESSION: Fracture of the distal phalanx of the great toe. THIS IS AN ELECTRONICALLY VERIFIED FINAL REPORT 08/20/2024 12:00 AM - Electronically signed by Selwyn Ascencio M.D. KH: [id number] Report ID: [id number] Reading Location: [id number] Procedure Note Selwyn Ascencio MD - 08/20/2024 EXAM DESCRIPTION: XR TOE RIGHT 2 OR MORE VIEWS REASON FOR STUDY: pain Tripped over dog/steps x 4 weeks ago. Complaints of constant R big toepain. Pt states he did have bruising to R big toe, but that has gotten better. Still some swelling. No prior injuries/surgery to R foot. No known conditions. TECHNIQUE: 4 radiographic view(s) of the right foot . COMPARISON: None FINDINGS: Transverse fracture is seen of the mid aspect of the distal phalanx of the great toe. This may be mildly impacted. Other bones appear to be intact. Some degenerative changes are noted to a mild degree. Soft tissues appear unremarkable. IMPRESSION: Fracture of the distal phalanx of the great toe. THIS IS AN ELECTRONICALLY VERIFIED FINAL REPORT 08/20/2024 12:00 AM - Electronically signed by Selwyn Ascencio M.D. KH: [id number] Report ID: [id number] Reading Location: [id number] Lexx Ascencio MD IMG XR PROCEDURES F inal Result from Last 3 Months Insurance [place] [facility] MEDICARE ADVANTAGE [facility] Address: [address] [address] [place] [address] IDPA Advance Directives For more information, please contact: [phone] * Full Code (Latest Code Status on File) Date Activated Date Inactivated Comments 11/29/2023 10:13 AM 11/30/2023 8:52 PM * Full Code Date Activated Date Inactivated Comments 08/01/2020 10:54 AM 08/01/2020 7:03 PM Care Teams Flange Machine Operator Relationship Specialty Start Date End Date Amarilis Franklin MD [address] [facility] [address] [facility] [address] [place] [address] PCP - General Family Medicine 06/03/24 Juany Dalton PA Physician Pmo Consultant Orthopedic Surgery 08/01/20 Eugene Velazquez MD [address] [facility] [facility] [place] [address] Consulting Physician Anesthesiology 06/03/24
--- OUTSIDE RECORDS SUMMARY | 2024-10-27 16:30 | XMS_ITS | Continuity of Care Document ---
Author Name Paula Xiong Address [address] [facility] [place] [address] Organization Unknown Address [address] [place] [address] [address] [place] [address] Problems No known problems
--- OUTSIDE RECORDS SUMMARY | 2024-10-27 16:30 | XMS_ITS | Clinical Summary ---
Author Organization [facility] Address [address] [place] [address] Phone Care Team Providers Care Warp Doffer Name Role Phone James Strickland MD Primary Care Provider Geoffrey Sheehan MD Unavailable Fei Merritt MD Unavailable Allergies Active Allergy Reactions Criticality Noted Date Comments Hydrocodone-Acetaminophen Anxiety 03/26/2020 Medications fluticasone (FLONASE) 50 MCG/ACT Suspension 2 Sprays by Nasal route daily. Use in each nostril as directed. 1 Bottle 3 7 Active diphenhydrAMIN E (BENADRYL) 25 MG Tablet Take 50 mg by mouth every 6 hours as needed (takes for allergies). Active acetaminophen (TYLENOL) 325 MG Tablet Take 1 Tab by mouth every 6 hours as needed for Mild or more severe pain. Do not exceed 4000 mg of acetaminophen in 24 hour from all sources. 1 Active famotidine (PEPCID) 20 MG TabletIndicati ons:Right hip pain,Right leg numbness Take 1 Tablet by mouth 2 times daily. 90 Tablet 3 1 Active Additional Information Patient taking differently:20 mg OralPRN, Reported on 06/23/2022 naproxen (NAPROSYN) 500 MG Tablet TAKE 1 TABLET BY MOUTH TWICE DAILY WITH MEALS 10 Tablet 3 Active Additional Information Patient not taking.Reported on 02/12/2023 oxyCODONE (ROXICODONE) 5 MG TabletIndicati ons:Left inguinal hernia Take 1 Tablet by mouth every 4 hours as needed for Severe pain. 15 Tablet 3 Active Additional Information Patient not taking.Reported on 08/27/2022 traMADol (ULTRAM) 50 MG Tablet Take 50 mg by mouth 2 times daily as needed. Active Cetirizine HCl (ZYRTEC ALLERGY PO) Take by mouth. Act carlos Active Problems Problem Noted Date Diagnosed Date Left inguinal hernia 03/21/2022 DDD (degenerative disc disease), lumbar 12/12/19 22 S/P hernia repair 04/11/2020 COVID-19 03/26/2020 Umbilical hernia with obstruction but no gangren e 03/20/2020 Pain in Achilles tendon 10/12/2015 Acute pain of left knee 07/06/2015 Pharyngeal inflammation 06/04/2015 Sinusitis 04/05/2015 Immunizations Immunization Administration Dates Next Due Influenza Vaccine, Quadrivalent, PF 10/25,03/09/2020(Deferred: Patient Refused) TD VACCINE 02/23/2011 Family History Medical History Relation Name Comments Chronic Obstructive Pulmonary Disease Brother Heart Attack Brother Heart Surgery Brother 5 stents Cancer Father kidney cancer Chronic Obstructive Pulmonary Disease Father No Known Problems Maternal Grandfather No Known Problems Maternal Grandmother Arthritis Mother Cancer Mother ovarian No Known Problems Paternal Grandfather No Known Problems Paternal Grandmother No Known Problems Son Relation Name Status Comments Brother Father Maternal Grandfather Maternal Grandmother Mother Paternal Grandfather Paternal Grandmother Son Alive Social History Tobacco Use Types Packs/Day Years Used Date Smoking Tobacco: Former Cigarettes 1 15 0 03/20/1980 - 1994 Smokeless Tobacco: Never Tobacco Cessation:Counseling Given: Not Answered Alcohol Use Standard Drinks/Week Comments Not Currently 0 (1 standard drink = 0.6 oz pur e alcohol) PHQ-2 Answer Date Recorded PHQ-2 Score 0 10/31/2018 Sexually Active Control Partners Comments Not Currently Female Sex and Gender Information Value Date Recorded Sex Assigned at Not on file Legal Sex Male 11:15 PM CDT Gender Identity Not on file Sexual Orientation Not on file Last Filed Vital Signs Vital Sign Reading Time Taken Comments Blood Pressure 144/78 02/12/2023 12:31 PM SUPERVISOR DRAPERY HANGING Pulse 91 02/12/2023 12:31 PM SUPERVISOR DRAPERY HANGING Temperature 36.5 C (97.7 F) 02/12/2023 12:31 PM SUPERVISOR DRAPERY HANGING Respiratory Rate 17 09/09/2022 2:24 PM CDT Oxygen Saturation 99% 02/12/2023 12:31 PM SUPERVISOR DRAPERY HANGING Inhaled Oxygen Concentration - - Weight 124.7 kg (275 lb) 02/12/2023 12:31 PM SUPERVISOR DRAPERY HANGING Height 172.7 cm (5' 8) 02/12/2023 12:31 PM SUPERVISOR DRAPERY HANGING Body Mass Index 41.81 02/12/2023 12:31 PM SUPERVISOR DRAPERY HANGING Plan of Treatment Health Maintenance Due Date Last Done Comments Hepatitis C Virus (HCV) Screening 1965 TdaP Immunization 1964 Hepatitis B Immunization (1 of 3 - 19+ 3-dose series) 11/14/1983 Cologuard 2009 Immunochemical Fecal Occult Blood 2009 Pneumococcal Immunization (5 0+ years) (1 of 1 - PCV) 2014 Zoster Immunization (1 of 2) 2014 PSA Discussion 11/14/2019 Influenza Immunization (#1) 2024 11/12/2021 SARS-COV-2 Immunization (1 - 2023- season) 2024 Colonoscopy 06/24/2027 06/23/2022, 06/23/2022, 07/13/2017 Colorectal Cancer Screening 06/24/2027 Respiratory Syncytial Virus (RSV) Immunization (Adult) (1 - 1-dose 75+ series) 11/14/2039 Human Papillomavirus (HPV) Immunization Aged Out No longer eligible b ased on patient's age to complete this topic Meningococcal Immunization (ACWY) Aged Out No longer eligible b ased on patient's age to complete this topic Rotavirus Immunization Aged Out No lo nger eligible based on patient's age to complete this topic Medical Devices Implanted Type Area Punch Card Operator Device Identifier Shelf Expiration Date Model / Serial / Lot Patch Srg Spring Open Bioresorbable Strap Tension Free Ventralex St Sepra Sorbaflex Polyp Hydrogel - [id number] Implanted:Qty: 1 on 03/26/2020 by Geoffrey Sheehan MD at [facility] IMPLANT N/A: Abdomen [employer] 11/20/2020 [id number] / [id number] Mesh Modified Onflex Medium - [id number] Implanted:Qty: 1 on 03/21/2022 by Geoffrey Sheehan MD at [facility] IMPLANT Left: Inguinal [employer] 01/21/2024 [id number] / [id number] Insurance Care Teams Warp Doffer Relationship Specialty Start Date End Date James Strickland MD [address] [facility] [address] [place] [address] PCP - General Family Medicine 01/13/15 Geoffrey Sheehan MD [address] [facility] [address] [place] [address] Consulting Physician Colon and Rectal Surgery 03/04/22 Fei Merritt MD [address] [facility] [address] [place] [address] Consulting Physician Urological Surgery 07/09/22
--- OUTSIDE RECORDS SUMMARY | 2024-10-27 16:31 | XMS_ITS | Patient Health Record ---
Author Organization [facility] Address [address] [place] [address] Care Team Providers Care Airborne Electronics Analyst Name Role Phone Amos Hines Unavailable [phone] Edinson Fleming Unavailable Unavailable Allergies Allergen (clinical drug ingredient) Drug/Non Drug Allergy documented on EMR Reaction Allergy Type Onset Date Status Vicodin Unknown Drug Allergy Active Reason For Referral No Information Medications Medication SIG (Take, Route, Fr equency, Duration) Notes Start Date End Date Status Tylenol Active ZyrTEC Allergy Activ e Social History Tobacco Use: Social History Observation Description Date Details (start date - stop date) Former Smoker NA - NA Tobacco Use/Smoking Question Answer Notes Are you a former smoker How long has it been since you last smoked? > 10 years Alcohol Screen (Audit-C) Question Answer Notes Did you have a drink containing alcohol in the p ast year? Yes How often did you have 6 or more drinks on one occasion in the past year? Never (0 point) Points 0 Interpretation Negative Problems Problem Type SNOMED Code ICD Code Onset Dates Problem Status W/U Status Risk Notes Problem Degeneration of lumbar intervertebral disc (36085097) Other intervertebral disc degeneration, lumbar region (M51.36) Active confirmed Problem Lumbar radiculopathy (317669874) Radiculopathy, lumbar region (M54.16) Active confirmed Plan Of Treatment No Information Medical (General) History Surgical History Surgery Date(Month/Year) rotator cuff 2017 right hip replacement 2020 hernia operation 2021
--- OUTSIDE RECORDS SUMMARY | 2024-10-27 16:32 | XMS_ITS | Encounter Summary ---
Author Organization [facility] Address [address] [facility] [place] [address] Phone Care Team Providers Care Signal Apprentice Name Role Phone James Strickland MD Primary Care Provider [phone] Geoffrey Sheehan MD Unavailable Fei Merritt MD Unavailable Reason for Visit * Reason Comments Medication Refill Encounter Details Date Type Department Care Team (Late st Contact Info) Description 02/27/2022 Refill [facility] [address] [place] [id number] James Strickland MD [address] [address] Medication Refill Social History Tobacco Use Types Packs/Day Years [...] Exposure Response Date Recorded In the last 10 days, have yo u been in contact with someone who was confirmed or suspected to have Coronavirus/COVID-19? No / Unsure 02/20/2022 12:34 PM PACKAGE HANDLER documented as of this encounter Miscellaneous Notes * Telephone Encounter - Willow Taylor RN - 02/27/2022 1:47 PM CST Medication failed the protocol, provider to review and approve the medication order if appropriate. Requested Prescriptions Pending Prescriptions Disp Refills naproxen (NAPROSYN) 500 MG Tablet [Pharmacy Med Name: NAPROXEN 500MG TABLETS] 10 Tablet 0 Sig: TAKE 1 TABLET BY MOUTH TWICE DAILY WITH MEALS NSAIDs Protocol Failed - 02/27/2022 1:39 PM Failed - Normal serum creatinine in past 12 months No results found for: CREATININE Failed - No matching NSAID med order in past 45 days Matching medication order placed on 02/20/2022 12:42 PM Order [id number]: naproxen (NAPROSYN) 500 MG Tablet (For orders placed between 01/13/2022 1:47 PM and 02/27/2022 1:47 PM) Failed - AST less than 55 or ALT less than 90 in past 12 months No results found for: SGOTAST No results found for: SGPTALT Failed - HGB greater than 10 or HCT greater than 30 in past 12 months HEMOGLOBIN (HGB) Date Value Ref Range Status 03/23/2020 14.4 13.0 - 16.5 g/dL Final HEMATOCRIT (HCT) Date Value Ref Range Status 03/23/2020 45.2 38.0 - 50.0 % Final Passed - Visit with relevant provider in past 12 months or upcoming 90 days Recent Visits Date Type Provider Dept 02/20/22 Office Visit James Strickland MD [facility] 11/12/21 Office Visit James Strickland MD [facility] Showing recent visits within past 365 days and meeting all other requirements Future Appointments No visits were found meeting these conditions. Showing future appointments within next 90 days and meeting all other requirements AGE HANDLER documented in this encounter Plan of Treatment Not on file documented as of this encounter Visit Diagnoses Not on filedocumented in this encounter Additional Health Concerns Assessment Noted Time PHQ-9 Depression Total Score: 0 11/03/19 18 9:00 AM CDT documented as of this encounter Care Teams Signal Apprentice Relationship Specialty Start Date End Date James Strickland MD [address] [facility] [address] [place] [address] PCP - General Family Medicine 01/13/15 Geoffrey Sheehan MD [address] [facility] [address] [place] [address] Consulting Physician Colon and Rectal Surgery 03/04/22 Fei Merritt MD [address]2 [facility] [address] [place] [phone] Consulting Physician Urological Surgery 07/09/22 documented as of this encounter
--- OUTSIDE RECORDS SUMMARY | 2024-10-27 16:32 | XMS_ITS | Clinical Summary ---
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 11/30/2023 Active atorvastatin (LIPITOR) 20 mg tablet Take 20 mg by mouth daily. Active buPROPion (WELLBUTRIN) 100 mg tablet Take 100 mg by mouth 2 times daily. Active cyclobenzaprine (FLEXERIL) 10 mg tablet Take 10 mg by mouth. Active diphenhydrAMINE (BENADRYL) 25 mg tablet Take 50 mg by mouth. Active metFORMIN (GLUCOPHAGE) 850 mg tablet Take 850 mg by mouth 2 times daily. Active multivitamin (DAILY-BENIGNO) tablet Take 1 Tablet by mouth daily. Active naproxen (NAPROSYN) 500 mg tablet Take 1 Tablet by mouth 2 times daily with meals. 02/27/2022 Active naproxen sodium (ALEVE) 220 mg Tablet Take by mouth. Active cetirizine (ZyrTEC) 10 mg tablet Take 1 tablet every day by oral route for 90 days, for Seasonal allergies. 06/08/2023 Active naltrexone-buPR OPion (Contrave) 8-90 mg Tablet Sustained Release Take 2 tablets twice a day by oral route for 30 days, for Weight loss. 11/05/2023 Active gabapentin (NEURONTIN) 300 mg capsule Take 1 Capsule (300 mg) by mouth every 12 hours. 60 Capsule 3 01/06/2024 Active Active Problems Problem Noted Date Diagnosed Date Musculoskeletal chest pain 11/30/2023 Unstable angina 11/29/2023 Diverticulosis of sigmoid colon 06/08/2023 Overview (01/06/2024): Noted on Screening colonoscopy in 06/2022 ?? moderate sigmoid diverticular disease, no diverticulitis Mixed hyperlipidemia 06/08/2023 Overview (01/06/2024): Lipid Panel (06/08/2023) - TC 231, HDL 33, LDL 162, BP 137/87, no DM, former smoker (quit >10 years ago) --> ASCVD risk 12.9% Recommended Atorvastatin 20mg, patient thinking about it Prediabetes 06/08/2023 Overview (01/06/2024): A1c 6.0% --> recommended lifestyle modification and Metformin to slow down progression, patient thinking about it Hydrocele, left 01/12/2023 Left inguinal hernia 03/21/2022 Trochanteric bursitis of right hip 01/23/2022 DDD (degenerative disc disease), lumbar 12/12/19 Acute right-sided low back pain without sciatica 12/05/2021 Insomnia secondary to chronic pain 12/05/2021 Lumbar radiculopathy 12/05/2021 Primary osteoarthritis of right hip 06/27/2020 Overview (01/06/2024): Added automatically from request for surgery [id number] S/P hernia repair 04/11/2020 COVID-19 03/26/2020 Umbilical hernia with obstruction but no gangren e 03/20/2020 Rotator cuff tear, right 05/18/2017 Pain in Achilles tendon 10/12/2015 Knee pain 07/11/2014 Overview (01/06/2024): Knee pain Acute sinusitis 03/02/2014 Overview (01/06/2024): Acute sinusitis Encounters Date Type Department Care Team Description 09/28/2024 External Device Data [facility] ABSTRACTION Provider, Abstract 09/13/2024 External Device Data [facility]STRACTION Provider, Abstract 09/07/2024 External Device Data [facility]CTION Provider, Abstract 08/10/2024 External Device Data [facility] Provider, Abstract 08/09/2024 External Device Data [facility]STRACTION Provider, Abstract from Last 3 Months Social History Tobacco Use Types Packs/Day Years Used Date Smoking Tobacco: Former Cigarettes 1 10 Q uit: 07/13/2004 Smokeless Tobacco: Former Tobacco Cessation:Counseling Given: Not Answered Comments:None Alcohol Use Standard Drinks/Week Comments Not Currently 2 (1 standard drink = 0.6 oz pur e alcohol) monthly Sex and Gender Information Value Date Recorded Sex Assigned at Not on file Legal Sex Male 1:22 PM CDT Gender Identity Not on file Sexual Orientation Not on file Last Filed Vital Signs Vital Sign Reading Time Taken Comments Blood Pressure 130/70 01/06/2024 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 Pulse - - Temperature - - Respiratory Rate - - Oxygen Saturation - - Inhaled Oxygen Concentration - - Weight 117.9 kg (260 lb) 01/06/2024 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 Height 172.7 cm (5' 8) 01/06/2024 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 Body Mass Index 39.53 01/06/2024 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 Plan of Treatment Health Maintenance Due Date Last Done Comments Pre-Diabetes and Diabetes Screening 1965 HEPATITIS B VACCINES (1 of 3 - 19+ 3-dose series) 11/14/1983 COLORECTAL SCREENING 2009 Colorectal Cancer Screening 2009 FIT-DNA Q 3 years 2009 FIT/FOBT Q 1 year 2009 Flex Sig/CT Colonography Q 5 years 2009 ZOSTER VACCINE (1 of 2) 2014 INFLUENZA VACCINE (#1) 2024 , 11/12/2021, 11/20/2015 DTAP/TDAP/TD VACCINES (2 - T d or Tdap) 06/07/2033 06/08/2023 Abdominal Aortic Aneurysm (A AA) Screening Completed 03/02/2023 Insurance INDIVIDUAL EXCHANGE [id number] Member Subscriber Plan / Payer (Ef fective 2023-Present) Name:Selwyn Rajput Relation to Subscriber:Self Name:Selwyn Rajput Payer ID:[id number] (NAIC) Group ID:[id number] Type:Exchange Address: [place] [phone]
--- OUTSIDE RECORDS SUMMARY | 2024-10-27 16:32 | XMS_ITS | Encounter Summary ---
Author Organization [facility] Address [address] [place] [address] Phone Care Team Providers Care Commercial Retoucher Name Role Phone James Strickland MD Primary Care Provider Geoffrey Sheehan MD Unavailable Fei Merritt MD Unavailable Encounter Details Date Type Department Care Team (Late st Contact Info) Description 03/12/2022 Transcribe Orders [facility] Preop[facility]Pac[facility] [address] [place] [address] Geoffrey Sheehan MD [address] [address] Preop testing (Primary Dx) Social History Tobacco Use Types Packs/Day Years Used Date Smoking Tobacco: Former Cigarettes 1 15 0 03/20/1980 - 1994 Smokeless Tobacco: Never Alcohol Use Standard Drinks/Week Comments Not Currently [...] suspected to have Coronavirus/COVID-19? 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 In vitro hemolysis could affect results. Clinical correlation advised. CHLORIDE 102 100 - 110 mmol/L 03/14/2022 10:54 AM [facility] CO2, VENOUS 30 22 - 32 mmol/L 03/14/2022 10:54 AM [facility] ANION GAP 12.5 8.0 - 20.0 mmol/L 03/14/2022 10:54 AM [facility] GLUCOSE 125(H) 70 - 99 mg/dL 03/14/2022 10:54 AM [facility] BUN 19 6 - 20 mg/dL 03/14/2022 10:54 AM [facility] CREATININE, BLOOD 0.82 0.80 - 1.30 mg/dL 03/14/2022 10:54 AM [facility] BUN/CREATININE RATIO 23(H) 12 - 20 ratio 03/14/2022 10:54 AM [facility] CALCIUM 9.6 8.9 - 10.3 mg/dL 03/14/2022 10:54 AM [facility] IS THE PATIENT REQUIRED TO BE FASTING? No 03/14/2022 10:54 AM [facility] GFR, ESTIMATED >60 >=60 03/14/2022 10:54 AM [facility] Comment: Creatinine Clearance is the preferred criteria for selecting drug dose adjustments in renally impaired patients. The GFR is provided as additional pertinent clinical information. GFR is reported in mL/min/1.73 sq m. Calculation based on the Chronic Kidney Disease Epidemiology Collaboration (CKD- EPI) equation refit without adjustment for race. GFR, EST. >60 >=60 023 10:54 AM SLATE ROOFER HELPER [facility] GFR, EST. NONAFRICAN >60 >=60 03/14/2022 10:54 AM SLATE ROOFER HELPER [facility] Blood Venipuncture / Unknown 03/14/2022 8:02 AM SLATE ROOFER HELPER 03/14/2022 10:08 AM SLATE ROOFER HELPER us Geoffrey Sheehan MD CHEMISTRY ORDERABLES Final Resul t [facility] [address] [place] [address] documented in this encounter Visit Diagnoses Diagnosis Preop testing- Primary Preoperative examination, unspecified documented in this encounter Additional Health Concerns Assessment Noted Time PHQ-9 Depression Total Score: 0 11/03/19 18 9:00 AM CDT documented as of this encounter Care Teams Commercial Retoucher Relationship Specialty Start Date End Date James Strickland MD #[address] [facility] [address] [place] [address] PCP - General Family Medicine 01/13/15 Geoffrey Sheehan MD #2 [facility] [address] [place] [address] Consulting Physician Colon and Rectal Surgery 03/04/22 Fei Merritt MD #2 [facility] [address] [place] [id number] Consulting Physician Urological Surgery 07/09/22 documented as of this encounter
[2024-10-27 16:46] VITALS: BP 145/98; PULSE 78; RESP 18; TEMP 37.1; O2SAT 98
--- NOTE | 2024-10-27 17:17 | ED.URI ---
HPI - URI/Sore Throat General Chief Complaint: Upper Respiratory Infection Stated Complaint: Sore Throat/Sinus Problem/Nasal Congestion Time Seen by Provider: 10/27/24 17:18 Source: patient, RN notes reviewed and old records reviewed Mode of arrival: ambulatory Limitations: no limitations History of Present Illness HPI Narrative: [age] year male presents to the [facility] with 4 day history of sore throat and congestion. Reports his ears are popping. Had taken a dose of Tylenol and a dose of Mucinex. Related Data Home Medications ?Medication ?Instructions ?Recorded ?Confirmed ?Last Taken ?Type atorvastatin 20 mg tablet mg 10/27/24 Unknown History bupropion HCl 200 mg tablet,12 hr mg PO 10/27/24 Unknown History sustained-release metformin 850 mg tablet mg 10/27/24 Unknown History Allergies Allergy/AdvReac Type Severity Reaction Status Date / Time alegra Allergy Mild Unknown Uncoded 10/27/24 16:29 Review of Systems Review of Systems: All systems reviewed & are unremarkable except as noted in HPI and below Constitutional: Constitutional: Reports no additional constitutional complaints ENT: Reports as per HPI, Reports nasal congestion and Reports sore throat Cardiovascular: Cardiovascular: Reports no additional cardiovascular complaints, Denies chest pain and Denies dyspnea Respiratory: Respiratory: Reports no additional respiratory complaints, Denies chest congestion, Denies cough and Denies dyspnea Musculoskeletal: Musculoskeletal: Reports no additional musculoskeletal complaints Integumentary/Breasts: Skin/Breast: Reports system reviewed and no additional complaints, except as docu PMFSH Surgical History Surgical History History of total right hip replacement H/O repair of right rotator cuff History of left knee replacement Social History Social History Smoking status: Former smoker Comments At the time of my signature, I reviewed and agree with the nursing past medical, surgical, social, and family history. There is no relevant family history pertinent to the patient complaint. Exam Const: General: cooperative, healthy appearing, comfortable, no acute distress, well developed, alert and well nourished Nutritional Appearance: well nourished and obese Orientation/consciousness: patient oriented x3 Limitations: no limitations HENMT: Head: normal to inspection Ears: hearing grossly normal bilaterally, external ears normal, TM's normal bilaterally, EAC's normal, mastoids normal and no periauricular adenopathy Mouth: Yes Normal oral and palatal mucosa present, Yes lip normal, Yes tongue normal and Yes moist mucous membranes Throat: uvula midline, postnasal drainage and no uvular edema Eyes: General: appearance normal, both eyes and all related structures Alignment and Position: alignment normal Neck: Neck: normal visual inspection, full ROM, no lymphadenopathy and no meningeal signs Chest: Chest palpation & inspection: normal inspection of the chest Resp: Effort & Inspection: normal respiratory effort and able to speak in complete sentences Auscultation: clear to auscultation bilaterally, no crackles, no rales, no rhonchi and no wheezes Cardio: Rate: regular rate Skin: General skin exam: normal color and no rashes or lesions noted Neuro: General: patient oriented x3, gait normal, moves all extremities and no meningeal signs Cognition (Neuro): normal cognition Speech: normal speech Gait exam (Neuro): Normal gait present Extrem: General: normal to inspection, full ROM, capillary refill normal and normal gait Psych: Appearance: grossly normal and well kempt Mental Status: mental status grossly normal Speech and movement: Normal speech and movement present and Clear speech present Affect: normal affect Attitude: cooperative Course Course Level of Care: Express Care Visit Vital Signs Vital signs: Vital Signs Temperature 98.7 F 10/27/24 16:46 Pulse Rate 78 10/27/24 16:46 Respiratory Rate 18 10/27/24 16:46 Blood Pressure 145/98 H 10/27/24 16:46 Pulse Oximetry 98 10/27/24 16:46 Oxygen Delivery Room Air 10/27/24 16:46 Temperature 98.7 F 10/27/24 16:46 Pulse Rate 78 10/27/24 16:46 Respiratory Rate 18 10/27/24 16:46 Blood Pressure 145/98 H 10/27/24 16:46 Pulse Oximetry 98 10/27/24 16:46 Oxygen Delivery Room Air 10/27/24 16:46 Reviewed MDM - URI/Sore Throat MDM Narrative Medical decision making narrative: Patient sitting in exam room. Patient is nontoxic, vitals stable. Patient presents with URI symptoms for 4 days. Flu, COVID, strep were negative. Patient is appropriate for outpatient treatment with close follow-up Discharge instructions reviewed with patient, as well as provided in writing per nursing staff. The instructions also include specific and strict return/GO TO THE ER as well as f/u information. All questions have been answered, and the patient deny any further questions with discharge and discharge plan. Some parts of this dictation were generated by voice recognition software and may contain typographical and/or grammatical inaccuracies. Differential Diagnosis Differential diagnosis: Likely upper respiratory infection, otitis media, sinusitis, viral infection, bronchitis, influenza and pharyngitis Lab Data Labs: Lab Results 10/27/24 Range/Units 17:22 POC Influenza A Ag Negative (Negative) POC Influenza B Ag Negative (Negative) POC SARS CoV-2 Ag Negative (Negative) POC Grp A Strep Screen Negative (Negative) Reviewed Critical Care Time Critical Care Time Critical Care Time: No Discharge Plan Discharge Clinical Impression: Upper respiratory infection Qualifiers: URI type: unspecified viral URI Qualified Code(s): J06.9 - Acute upper respiratory infection, unspecified Sinusitis Qualifiers: Sinusitis location: pansinusitis Chronicity: acute Recurrence: not specified as recurrent Qualified Code(s): J01.40 - Acute pansinusitis, unspecified Patient Disposition: Home Condition: Stable Instructions: Antibiotic Form, Sinusitis (ED), Upper Respiratory Infection (ED) Additional Instructions: Your rapid strep swab was negative today at [facility]. A throat culture will be sent to the laboratory for further testing. If the test is positive, you will receive a phone call within 48 hours and an appropriate antibiotic will be initiated at that time. Your rapid COVID test were negative Your rapid flu test was negative Your symptoms are likely due to a viral illness, which is not treated with antibiotics. Typically viral infections last 7-10 days, can linger for couple of weeks. It is very important to treat your symptoms. Drink plenty of water, Gatorade, Pedialyte, ice pops or Jell-O. -Alternate Tylenol and Motrin per package directions for fever or pain. You can alternate every 4 hours -Antihistamine medication such as Zyrtec/Claritin/Sherine during the day can help improve symptoms. -doing daily nasal irrigations can help relieve pressure your sinuses. Things like a Neti pot -Use Flonase twice a day for 5 days then daily to help reduce the inflammation and dry up your sinuses. -You can also use Mucinex. Be sure to drink plenty of water with this medication at least 8 ounces with every dose and it is important to drink 8 to 10 glasses of water per day. Water is a natural decongestant -Eat and drink things that are easy to swallow, like tea or soup, or popsicles. -Oral rinses such as: Salt water gargles and/or may use topical anesthetic (eg. Chloraseptic spray) or lozenges to relieve dryness or throat pain). -Frequent hand washing or hand title curative specialist is one of the best ways to prevent spread of infection. -Using a vaporizer or humidifier at night will also help thin secretions and help with coughing up phlegm. -Follow up with primary care provider in 7-10 days if condition is not improving - For new or worsening symptoms go directly to the nearest ER Patient Language: Wolof Prescriptions: No Action atorvastatin 20 mg tablet metformin 850 mg tablet bupropion HCl 200 mg tablet sustained-release 12 hr PO Follow-up/Referrals: UNKNOWN,DOCTOR [Primary Care Provider] Stand Alone Forms: Work/School Release IP Time of Disposition: 17:23
[2024-10-27 17:25] LABS: EDCOVIDSCREEN Negative (Negative); EDINFLUASCREEN Negative (Negative); EDINFLUBSCREEN Negative (Negative); EDSTREPNEGPOS1 Negative (Negative)
== END 2024-10-27 17:29 | disposition home or self-care (01) ==
PROVIDERS: Emergency Provider Nurse Practitioner
DX: J06.9 Acute upper respiratory infection, unspecified (principal); J01.40 Acute pansinusitis, unspecified; Z79.899 Other long term (current) drug therapy; Z79.84 Long term (current) use of oral hypoglycemic drugs; Z87.891 Personal history of nicotine dependence; Z20.822 Contact with and (suspected) exposure to COVID-19
CPT/HCPCS: 87081; 87426; 87804; 87880; 99213; G0463